=== PATIENT | male | born 1945 | race Two or more races ===

== ENCOUNTER 2019-12-17 18:53 | Emergency (ER) | payer MEDICARE, OTHER ==
[~2019-12-17] VITALS: Ht 172.7 cm; Wt 90.0 kg
[2019-12-17] MEDS ORDERED: SODIUM CHLORIDE 0.9% 1000ML BAG (SEPSIS BOLUS) IV ONE (19:30)
[2019-12-17 20:02] LABS: BASOPHILS % 0.2 % (0.0-2.0); HEMATOCRIT. 49.7 % (42.0-52.0); HEMOGLOBIN. 16.3 g/dL (14.0-18.0); LYMPHOCYTES % 8.9 % (20.0-50.0); MEAN CORPUSCULAR HEMOGLOBIN 29.1 pg (28.0-32.0); MEAN CORPUSCULAR VOLUME 89.1 fL (80.0-94.0); MEAN PLATELET VOLUME 8.8 fl (7.4-10.4); MONOCYTES % 12.1 % (2.0-8.0); NEUTROPHILS % 78.8 % (40.0-76.0); PLATELET 173 x1000/uL (130-400); RED BLOOD CELL COUNT 5.58 mill/uL (4.7-6.1); RED CELL DISTRIBUTION WIDTH 13.6 % (11.6-14.6)
[2019-12-17 20:06] LABS: INR 1.2; PROTHROMBIN TIME 12.3 sec (9.6-11.0)
[2019-12-17 20:07] LABS: CHLORIDE 101 mEq/L (98-107)
[2019-12-17 20:11] LABS: ETHANOL BLOOD < 10 mg/dL
[2019-12-17 20:41] LABS: CREATINE KINASE 6959 IU/L (39-308)
[2019-12-17] MEDS ORDERED: PIPERACILLIN/TAZ 3.375G PREMIX 50 ML IV ONE (22:15)
[2019-12-17] MEDS ORDERED: VANCOMYCIN 1 G PREMIX 200 ML IV ONE (22:15)
[2019-12-17 23:35] VITALS: BP 168/91
== END 2019-12-18 00:23 | disposition short-term general hospital (02) ==
LOC: ER 18:53 → CANBEDREQ 12-18 03:09
DX: R53.1 Weakness (principal); E11.9 Type 2 diabetes mellitus without complications
CPT/HCPCS: 36415; 70450; 71045; 74176; 80053; 80307; 80320; 80329; 82140; 82550; 83605; 83690; 83880; 84443; 84484; 85025; 85610; 86850; 86900; 86901; 87040; 93005; 96365; 96366; 96368; 99285; J2543; J3370; J7030; G0480